=== PATIENT | male | born 1985 ===

== ENCOUNTER 2020-08-17 20:45 | Emergency (ER) ==
[~2020-08-17] VITALS: Ht 172.7 cm; Wt 72.7 kg
[2020-08-17] MEDS ORDERED: AMOXICILLIN 8751 TAB PO (23:03)
== END 2020-08-17 23:18 | disposition home or self-care (01) ==
LOC: COL.ER 20:45
DX: K05.30 Chronic periodontitis, unspecified (principal); F17.210 Nicotine dependence, cigarettes, uncomplicated